=== PATIENT | female | born 1975 | race Caucasian/White ===

== ENCOUNTER 2025-07-29 08:01 | Outpatient (AMB) | payer OTHER, SELFPAY ==
--- OUTSIDE RECORDS SUMMARY | 2025-07-29 08:03 | XMS_ITS | Encounter Summary ---
Author Organization [facility] [address] [place] [address] Care Team Providers Care Pediatric Orthodontist Name Role Phone Unavailable Primary Care Provider Unavailabl e Encounter Details Date Type Department Care Team (Late st Contact Info) Description 10/28/2024 Scanned Document [facility] Bariatric Surgery [address] [place] [address] Bariatrics, Scan Social History Tobacco Use Types Packs/Day Years Used Date Smoking Tobacco: Never Assessed Comments Unknown Sex and Gender Information Value Date Recorded Sex Assigned at Not on file Legal Sex Female 1:41 PM EST Gender Identity Not on file Sexual Orientation Not on file documented as of this encounter Plan of Treatment Not on file documented as of this encounter Visit Diagnoses Not on filedocumented in this encounter
--- OUTSIDE RECORDS SUMMARY | 2025-07-29 08:03 | XMS_ITS | Encounter Summary ---
Author Organization [facility] [address] [place] [address] Care Team Providers Care Deck Steward Name Role Phone Unavailable Primary Care Provider Unavailabl e Encounter Details Date Type Department Care Team (Late st Contact Info) Description 10/28/2024 Scanned Document [facility] Bariatric Surgery [address] [place] [address] Bariatrics, Scan Social History Tobacco Use Types [...]
--- OUTSIDE RECORDS SUMMARY | 2025-07-29 08:03 | XMS_ITS | Continuity of Care Document ---
Author Organization [place] - [facility], [facility] Address [address] [place] [address] Care Team Providers Care Criminal Justice Instructor Name Role Phone STEPHONGARETH WILSON Primary Care Provider Assessment Encounter Date Assessment Date Assessment LastModified by Organization Details LastModified Time 06/07/2025 06/07/2025 49-year-old female presenting with otalgia status post right tympanoplasty with OCR [place] [address] Varner. Ear exam today showed: Similar ear findings to last visit with Dr. Varner with significant retraction including the cartilaginous portion of the tympanoplasty surgery. I do think they would benefit with potential eustachian tube dilation which I discussed with them. They do want to talk with Dr. Varner about this in the near future. From an ear perspective there is no evidence of infection I do think the urgent care was noticing the cartilage tympanoplasty thinking with some kind of infection. I do think the patient's significant otalgia is due to her TMJ crepitus which is notable on exam today. The patient's periauricular pressure sensation is most likely consistent with intermittent inflammation of the jaw joint or spasm of the surrounding musculature. I recommended the patient use light massage, warm compresses and anti-inflammator ies for symptomatic management. Stressed avoidance of chewy foods and gum/hard sweets. Use soft food diet as needed. [facility] Program information sheet was shared. If this treatment plan is ineffective, recommend follow up with their dentist.Referral to physical therapist who specializes in TMJ disorders could also be considered. [email or web address] Not available 06/07/2025 14:09:28 Plan of Treatment Reminders Order Date Submit Date Provider Last Modified By Organization Details Last Modified Time Details Appointments Test Results 15 2024 08:45A M JANEE VARNER MD Not available Not available Not available Lab None recorded . Referral None recorded . Procedures None recorded . Surgeries None recorded . Imaging None recorded . Medication Orders None recorded . Patient TargetsNo targets recorded. Patient InstructionsNo instructions recorded. Reason for Referral None Reported. Problems Name Problem SNOMED Code Status Onset Date Resolution Date Notes Provider Name and Address Organization Details Recorded Time Acute serous otitis media of right ear 45080602773 15490 Completed 202104/09/2024 Acute serous otitis media, right ear; Note: Date Diagnose d: 2 4:39 PM (H65.01) Not Available [facility] 4 02:55:29 Disorder of right Eustachi an tube 28851388377 98360 Active 2021 Other specifie d disorder s of Eustachi an tube, right ear; Note: Date Diagnose d: 2 4:35 PM (H69.81) Not Available [facility] 4 02:55:30 Diffuse otitis externa 89840978 Completed 202104/09/2024 Diffuse otitis externa, right ear; Note: Date Diagnose d: 09/05/20 22 5:11 PM (H60.311 ) Not Available [facility] 4 02:55:27 Conducti ve hearing loss 83942273 Active 2021 Conducti ve hearing loss, unilater al, right ear, with unrestri cted hearing on the contrala teral side; Note: Date Diagnose d: 09/05/20 22 5:12 PM (H90.11) Not Available [facility] 4 02:55:26 Impacted cerumen in right ear 94525678208 Active 2021 Impacted cerumen, right ear; Note: Date Diagnose d: 09/05/20 22 5:11 PM (H61.21) Not Available [facility] 4 02:55:30 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 , right ear; Note: Date Diagnose d: 3 12:38 PM (H73.811 ) Not Available [facility] 4 02:55:29 Marginal perforat ion of tympanic membrane 35188840 Completed 202204/09/2024 Other marginal perforat ions of tympanic membrane , right ear; Note: Date Diagnose d: 3 12:38 PM (H72.2X1 ) Not Available [facility] 4 02:55:28 Sensorin eural hearing loss 81375349 Active 2022 Sensorin eural hearing loss, unilater al, right ear, with unrestri cted hearing on the contrala teral side; Note: Date Diagnose d: 04/10/2023 5:05 PM (H90.41) Not Available [facility] 4 02:55:26 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 Medical Equipment None Reported. Allergies Allergen ID Allergen Name Allergen Category Reaction Reaction Severity Criticality Documentation Date Start Date Code Code System Note Provider Name and Address Organization Details Recorded Time 22678 Substance with sulfonami de structure and antibacte rial mechanism of action (substanc e) medicatio n other Not available Not available 01/20/2024 45662 8003 SNOMED React ion: Unkno wn; Not Available [facility] 4 01:05:58 49544 erythromy joselyn medicatio n other Not available Not available 01/20/2024 4053 RxNorm React ion: Unkno wn; Not Available [facility] 4 01:05:59 56600 Product containin g penicilli n (product) medicatio n anaphylax is Not available Not available 01/20/2024 46469 8001 SNOMED React ion: shock ;; Not Available [facility] 01:05:59 Medications Name Sig Start Date Stop Date Status Note LastModified by Organization Details LastModified Time Prescript ion - New active Rx^Rx_20 579254 Not Available Not Available Not Available cefpodoxi me 200 mg tablet TAKE 1 TABLET (ORAL) 2 TIMES PER DAY FOR 7 DAYS MUST ADMINIST ER WITH A MEAL/SANTI D 06/07 completed Not Available Not Available Not Available amlodipin e 2.5 mg tablet 06/07 completed Medicati on ID: [id number] B rand Name: amlodipi ne Send Method: E-Prescr ibed Sub s Allowed: subs OK Medic ationGen ericName : amlodipi ne Not Available Not Available Not Available sulfameth oxazole 800 mg-trimet hoprim 160 mg tablet TAKE 1 TABLET BY MOUTH EVERY 12 HOURS FOR 5 DAYS 06/07 completed Not Available Not Available Not Available levothyro xine 100 mcg tablet TAKE 1 TABLET BY MOUTH EVERY DAY active Not Available Not Available No t Available lorazepam 0.5 mg tablet active Medicati on ID: [id number] B rand Name: lorazepa m Send Method: E-Prescr ibed Sub s Allowed: subs OK Medic ationGen ericName : lorazepa m Not Available Not Available Not Available ciproflox acin 0.3 % eye drops 06/07 completed Medicati on ID: [id number] D uration Value: 14 Prescri bed By Name: Phillip Spears nd Name: ciproflo xacin HCl Send Method: E-Prescr ibed Sub s Allowed: subs OK Speci al Instruct ion: Instill 4 drops twice a day into affected ear for 14 days Med icationG enericNa me: ciproflo xacin HCl Not Available Not Available Not Available baclofen 10 mg tablet TAKE 1 TABLET BY MOUTH TWICE A DAY active Not Available Not Available No t Available buspirone 30 mg tablet TAKE 1 TABLET BY MOUTH TWICE A DAY active Not Available Not Available No t Available buspirone 10 mg tablet TAKE 1 TABLET BY MOUTH TWICE A DAY active Not Available Not Available No t Available metronida zole 0.75 % topical cream APPLY TO ENTIRE FACE IN THE MORNING AND IN THE EVENING active Not Available Not Available No t Available lorazepam 1 mg tablet TAKE 1 TABLET BY MOUTH EVERY DAY NEEDED FOR ANXIETY active Not Available Not Available No t Available ondansetr on 4 mg disintegr ating tablet DISSOLVE 1 TABLET ON THE TONGUE EVERY 8 HOURS NEEDED FOR NAUSEA OR VOMITING active Not Available Not Available No t Available cefdinir 300 mg capsule TAKE 1 CAPSULE BY MOUTH EVERY 12 HOURS FOR 10 DAYS 06/07 completed Not Available Not Available Not Available buspirone 15 mg tablet TAKE 1 TABLET BY MOUTH TWICE A DAY active Not Available Not Available No t Available TobraDex 0.3 %-0.1 % eye drops,[facility] 06/07 completed Medicati on ID: [id number] D uration Value: 14 Prescri bed By Name: JESSICA Spear nd Name: TobraDex Send Method: E-Prescr ibed Sub s Allowed: subs OK Speci al Instruct ion: Instill 4 drops in the right ear twice a day for 14 days [facility] TobraDex Not Available Not Available Not Available duloxetin e 60 mg capsule,d elayed release TAKE 1 CAPSULE BY MOUTH EVERY DAY active Not Available Not Available No t Available Cymbalta 30 mg capsule,d elayed release active Medicati on ID: [id number] Kassie simms Name: Cymbalta Send Method: E-Prescr ibed Sub s Allowed: subs OK Medic ationGen ericName : Cymbalta Not Available Not Available Not Available Tirosint 100 mcg capsule TAKE ONE Capsule BY MOUTH EVERY DAY active Not Available Not Available No t Available Vitals Date Recorded Body height Body mass index (BMI) Body weight Provider Name and Address Organization Details Last Updated DateTime 06/07/2025 157.48 cm 40.2 kg/m2 52216.32 g NAJMA AVELAR [facility] 06/07/2025 13:46:47 Social History None recorded. Functional Status None recorded. Mental Status None recorded. Family History Nothing Reported. Medical History No medical history recorded. Gynecological HistoryNo gynecological history recorded. Obstetrics History GPAL:G 0 P 0 0 0 0 Past Encounters Encounter ID Performer Location Encounter Start Date Encounter Closed Date Diagnosis/Indication Diagnosis SNOMED-CT Code Diagnosis ICD10 Code Diagnosis IMO Codes Diagnosis Note [id number] Jason Petty DO [facility] [address] [place] [address] 06/07/2025 13:27:52 06/07/2025 14:09:16 Dysfunction of bilateral eustachian tubes [id number] 591109 H69.93 18597920 History of surgery 52199 5003 Z98.890 11738115 Right Health Concerns Section Related Observation LastModified by Organization Detai ls LastModified Time None Recorded Concern Status LastModified by Organization Details LastModified Time None Recorded Payers Encounter Date Sequence Insurance Name Policy Number Policy Singh Covered Member ID Singh Member ID Guarantor Name 06/07/[address] [place] [address] [id number] Heather Alonso [id number] Heather Alonso Notes Date Note Type Note Provider Name and Address Organization Details Recorded Time 06/07/2025 text/html ROS as noted in the HPI Interval history: Patient notes over the last few months she has had some increasing ear pain and some fullness in the ear. She notes that her hearing has not changed much otherwise. She previously discussed potential eustachian tube balloon dilation with Dr. Varner but was holding off at this time. History of right tympanoplasty with ossicular reconstruction in 01/21/2023. Does have a history of pressure and blockage sensation last seen by Dr. Varner in October 2023. On his last evaluation there was some progression of the drum retraction even after tympanoplasty. There was some discussion of potential eustachian tube balloon dilation Jason Petty DO [address] [place] [address],[place] [address], [place], [address], [facility] - [facility] 06/07/2025 14:09:41 OBGyn Episode No OBEpisode recorded.
--- OUTSIDE RECORDS SUMMARY | 2025-07-29 08:04 | XMS_ITS | Clinical Summary ---
Author Organization [facility] Address [address] [place] [address] Care Team Providers Care Egg Processing Supervisor Name Role Phone Unavailable Primary Care Provider Unavailabl e Social History Tobacco Use Types Packs/Day Years Used Date Smoking Tobacco: Never Assessed Comments Unknown Sex and Gender Information Value Date Recorded Sex Assigned at Not on file Legal Sex Female 1:41 PM EST Gender Identity Not on file Sexual Orientation Not on file Plan of Treatment Health Maintenance Due Date Last Done Comments Hepatitis C Virus Screening 1973 HIV Screening 1986 DTaP/Tdap/Td Vaccines (1 - Tdap) 1992 Hepatitis B Vaccines (1 of 3 - 19+ 3-dose series) 12/07 Pneumococcal Vaccines 50+ (1 of 1 - PCV) 12/26/2023 Zoster (Shingles) Vaccine (1 of 2) 12/26/2023 COVID-19 Vaccine ( - 2023-25 season) 2025 RSV Vaccine 50 years and old er and Patients (1 - 1-dose 75+ series) 2048
--- OUTSIDE RECORDS SUMMARY | 2025-07-29 08:04 | XMS_ITS | Continuity of Care Document ---
Author Organization [facility] Address [address] [facility] [address] [place] [address] Insurance Providers Payer Plan Claims Address Claims Phone Policy Number Group Number Relation Employer Guarantor Name Guarantor Guarantor Address Guarantor Phone [facility] [employer] [place] [place] [address] [facility] [address] [address] tel: [phone] Problems Unknown Problems Results Test Result Date/Time Value / Unit Interp. Refere nce Range Comp. Metabolic Panel (14)[3 75068] Collected: 08/02/2024 07:01 PM Specimen Received: 08/02/2024 05:00 AM Source: [facility] Glucose [[id number]] 08/03/2024 07:54 AM 81 mg/dL 70-99 mg/dL BUN [085090] 08/03/2024 07:55 AM 13 mg/dL 6-2 4 mg/dL Creatinine [432974] 08/03/2024 08:03 AM 0.82 mg/dL 0.57-1.00 mg/dL eGFR [986996] 08/03/2024 08:03 AM 87 mL/min/1.73 >59 mL/min/1.73 BUN/Creatinine Ratio [041421] 08/03/2024 08:03 AM 16 9-23 Sodium [005183] 08/03/2024 08:01 AM 139 mmol/L 134-144 mmol/L Potassium [409181] 08/03/2024 08:04 AM 5.1 mmol/L 3.5-5.2 mmol/L Chloride [918418] 08/03/2024 08:01 AM 103 mmol/L 96-106 mmol/L Carbon Dioxide, Total [086777] 08/03/2024 07:59 AM 22 mmol/L 20-29 mmol/L Calcium [881910] 08/03/2024 07:54 AM 9.3 mg/dL 8.7-10.2 mg/dL Protein, Total [407582] 08/03/2024 08:02 AM 6.9 g/dL 6.0-8.5 g/dL Albumin [245603] 08/03/2024 07:59 AM 4.3 g/dL 3.9-4.9 g/dL Globulin, Total [992727] 08/03/2024 08:02 AM 2.6 g/dL 1.5-4.5 g/dL Bilirubin, Total [880532] 08/03/2024 07:59 AM 0.3 mg/dL 0.0-1.2 mg/dL Alkaline Phosphatase [412681] 08/03/2024 08:00 AM 70 IU/L 44-121 IU/L AST (SGOT) [550957] 08/03/2024 07:55 AM 19 IU/L 0-40 IU/L ALT (SGPT) [258170] 08/03/2024 08:02 AM 15 IU/L 0-32 IU/L Lipid Panel[075805] Collected: 08/02/2024 07:01 PM Specimen Received: 08/02/2024 05:00 AM Source: [facility] Cholesterol, Total [941154] 08/03/2024 08:11 AM 255 mg/dL H 100-199 mg/d L Triglycerides [020206] 08/03/2024 08:07 AM 118 mg/dL 0-149 mg/dL HDL Cholesterol [414589] 08/03/2024 08:09 AM 66 mg/dL >39 mg/dL VLDL Cholesterol [place] [541873] 08/03/2024 08:11 AM 21 mg/dL 5-40 mg/dL LDL Chol Calc ([facility]) [976622] 08/03/2024 08:11 AM 168 mg/dL H 0-99 mg/dL Hemoglobin A1c[963068] Collected: 08/02/2024 07:01 PM Specimen Received: 08/02/2024 05:00 AM Source: [facility] Hemoglobin A1c [681224] 08/03/2024 04:16 AM 5.3 % 4.8-5.6 % . Prediabetes: 5.7 - 6.4 Kika betes: >6.4 Glycemic control for adults with diabetes: 7.0 Allergies, adverse reactions, alerts No known allergies and adverse reactions Medications No administered medications reported Vital Signs No vital signs reported Social History No smoking Hx information available
--- OUTSIDE RECORDS SUMMARY | 2025-07-29 08:04 | XMS_ITS | Encounter Summary ---
Author Organization [facility] [address] [place] [address] Care Team Providers Care Stacker Straightener Name Role Phone Unavailable Primary Care Provider Unavailabl e Encounter Details Date Type Department Care Team (Late st Contact Info) Description 10/28/2024 Scanned Document [facility] Bariatric Surgery [address] [place] [address] Bariatrics, Scan Social History Tobacco Use Types [...]
--- OUTSIDE RECORDS SUMMARY | 2025-07-29 08:04 | XMS_ITS | Encounter Summary ---
Author Organization [facility] [address] [place] [address] Care Team Providers Care Folder Machine Adjuster Name Role Phone Unavailable Primary Care Provider Unavailabl e Encounter Details Date Type Department Care Team (Late st Contact Info) Description 10/28/2024 Scanned Document [facility] Bariatric Surgery [address] [place] [address] Bariatrics, Scan Social History Tobacco Use Types [...]
--- OUTSIDE RECORDS SUMMARY | 2025-07-29 08:04 | XMS_ITS | Data Portability ---
Author Organization [place] - [facility], Allergy Address [address] [address] Care Team Providers Care District Ranger Name Role Phone GARETH SZYMANSKI Primary Care Provider [phone] Assessment Encounter Date Assessment Date Assessment LastModified [...] Acute serous otitis media of right ear [id number] 94955 Completed 202104/09/2024 Acute serous otitis media, right ear; Note: Date Diagnose d: 2 4:39 PM (H65.01) Not Available [facility] 4 02:55:29 Disorder of right Eustachi an tube 15679432758 Active 2021 Other specifie d disorder s of Eustachi an tube, right ear; Note: Date Diagnose d: 2 4:35 PM (H69.81) Not Available [facility] 4 02:55:30 Diffuse otitis externa 55652311 Completed 202104/09/2024 Diffuse otitis externa, right ear; Note: Date Diagnose d: 09/05/20 22 5:11 PM (H60.311 ) Not Available [facility] 4 02:55:27 Conducti ve hearing loss 79641473 Active 2021 Conducti ve hearing loss, unilater al, right ear, with unrestri cted hearing on the contrala teral side; Note: Date Diagnose d: 09/05/20 22 5:12 PM (H90.11) Not Available [facility] 4 02:55:26 Impacted cerumen in right ear 90757125354 16919 Active 2021 Impacted cerumen, right ear; Note: Date Diagnose d: 09/05/20 22 5:11 PM (H61.21) Not Available [facility] 4 02:55:30 Atrophic flaccid right tympanic membrane 37205448467 32518 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 , right ear; Note: Date Diagnose d: 3 12:38 PM (H73.811 ) Not Available [facility] 4 02:55:29 Marginal perforat ion of tympanic membrane 27349887 Completed 202204/09/2024 Other marginal perforat ions of tympanic membrane , right ear; Note: Date Diagnose d: 3 12:38 PM (H72.2X1 ) Not Available [facility] 4 02:55:28 Sensorin eural hearing loss 40482504 Active 2022 Sensorin eural hearing loss, unilater al, right ear, with unrestri cted hearing on the contrala teral side; Note: Date Diagnose d: 04/10/2023 5:05 PM (H90.41) Not Available [facility] 4 02:55:26 Adhesive middle ear disease 4919791 Active 2023 Adhesive right middle ear disease; Note: Date Diagnose d: 4 9:45 AM (H74.11) Not Available [facility] 4 02:55:29 Dysfunct ion of bilatera l eustachi an tubes 45374016109 53188 Active 2024 Jason Petty, [place] [address], [facility] [place], [address] , [facility] - [facility] 5 12:27:59 Problem Notes None recorded. Medical Equipment None Reported. Allergies Allergen ID Allergen Name Allergen Category Reaction Reaction Severity Criticality Documentation Date Start Date Code Code System Note Provider Name and Address Organization Details Recorded Time 02305 Substance with sulfonami de structure and antibacte rial mechanism of action (substanc e) medicatio n other Not available Not available 01/20/2024 73428 8003 SNOMED React ion: Unkno wn; Not Available [facility] 4 01:05:58 56899 erythromy joselyn medicatio n other Not available Not available 01/20/2024 4053 RxNorm React ion: Unkno wn; Not Available [facility] 4 01:05:59 55206 Product containin g penicilli n (product) medicatio n anaphylax is Not available Not available 01/20/2024 73470 8001 SNOMED React ion: shock ;; Not Available [facility] 01:05:59 Medications Name Sig Start Date Stop Date Status Note LastModified by Organization Details LastModified Time Prescript ion - New active Rx^Rx_20 391817 Not Available Not Available Not Available cefpodoxi me 200 mg tablet TAKE 1 TABLET (ORAL) 2 TIMES PER DAY FOR 7 DAYS MUST ADMINIST ER WITH A MEAL/SANTI D 06/07 completed Not Available Not Available Not Available amlodipin e 2.5 mg tablet 06/07 completed Medicati on ID: [id number] B rand Name: amlodipi ne Send Method: [...] 0.5 mg tablet active Medicati on ID: [id number] B rand Name: lorazepa m Send Method: E-Prescr ibed Sub s Allowed: subs OK Medic ationGen ericName : lorazepa m Not Available Not Available Not Available ciproflox acin 0.3 % eye drops 06/07 completed Medicati on ID: [id number] D uration Value: 14 Prescri bed By [...] t Available TobraDex 0.3 %-0.1 % eye drops,[facility] 06/07 completed Medicati on ID: [id number] D uration Value: 14 Prescri bed By Name: JESSICA Spear nd Name: TobraDex Send Method: E-Prescr ibed Sub s Allowed: subs OK Speci al Instruct ion: Instill 4 drops in the right ear twice a day for 14 days Med icationG enericNa me: TobraDex Not Available Not Available Not Available duloxetin e 60 mg capsule,d elayed release TAKE 1 CAPSULE BY MOUTH EVERY DAY active Not Available Not Available No t Available Cymbalta 30 mg capsule,d elayed release active Medicati on ID: [id number] Kassie simms Name: Cymbalta Send Method: E-Prescr [...] Updated DateTime 06/07/2025 157.48 cm 40.2 kg/m2 37788.32 g NAJMA AVELAR [facility] 06/07/2025 13:46:47 Social History None recorded. Functional Status None recorded. Mental Status None recorded. Family History Nothing Reported. Medical History No medical history recorded. Gynecological HistoryNo gynecological history recorded. Obstetrics History GPAL:G 0 P 0 0 0 0 Past Encounters Encounter ID Performer Location Encounter Start Date Encounter Closed Date Diagnosis/Indication Diagnosis SNOMED-CT Code Diagnosis ICD10 Code Diagnosis IMO Codes Diagnosis Note [id number] Jason Petty DO [facility] [address] [place] [address] 06/07/2025 13:27:52 06/07/2025 14:09:16 Dysfunction of bilateral eustachian tubes 1160303138 524871 H69.93 87304557 History of surgery 83168 5003 Z98.890 68174150 Right Health Concerns Section Related Observation LastModified by Organization Detai ls LastModified Time None Recorded Concern Status LastModified by Organization Details LastModified Time None Recorded Advance Directives Directive None Recorded Payers Insurance Date Sequence Insurance Name Policy Number Policy Singh Covered Member ID Singh Member ID Guarantor Name 06/07/[address] [place] [address] [id number] Heather Alonso [id number] Heather Alonso Notes Date Note Type Note [...] eustachian tube balloon dilation Jason Petty DO [address] [place] [address],[facility] [address], [place], [address], [facility] - [facility] 06/07/2025 14:09:41 OBGyn Episode No OBEpisode recorded.
[2025-07-29 08:06] VITALS: BP 122/90; PULSE 76; RESP 16; O2SAT 99; BMI 40.2
--- NOTE | 2025-07-29 08:06 | A.OFFVIS_ITS ---
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 According to the patient today, about 8 or 10 years ago she had a severe headache with left sided facial weakness and numbness with some confusion. Prior to this she never had significant headaches. A few years later and about 5 years ago from today she had an episode of expressive aphasia and diplopia. She did not develop a headache that she can recall. 2-3 years ago from now while driving she had a complete loss of vision on the left side that lasted a couple of minutes along with some mild confusion about her whereabouts. She did not develop a headache that she can recall. More recently she has had some episodes of staring and possible loss of awareness as noted by her . She does feel that she is often loosing gaps in time. Occurring weekly. She also has some word finding difficulties and general difficulty with short term memory. She will also have episodes where her whole body feels extremely tired and fatigued where she has difficulty even performing simple ADLs when this happens. She experiences some mild headaches a couple times per month relieved by tylenol and rest within a couple of hours. Pain is to the right parietal area accompanied by light and sound sensitivity and nausea. Other related background information: Sleep:Reports that her sleep is horrible and sporadic where she has poor sleep and other times where she can sleep for days. She does not snore or have gasping arousals. There has been question of narcolepsy in the past. Stressors: Reports that she is a baseline tense person Hydration: Reports good hydration Caffeine intake: 1-2 cups of coffee daily Alcohol intake:2 drinks per month Substance use:None Tobacco use:None Last eye exam:Within the last 2 years- No significant abnormalities Last dental visit: 2-3 weeks ago. Does clench at night but does not use a mouthguard History of head injury:No but has had several right ear surgeries Family history: Aunt with a stroke history. No known seizure history. Aunt with early onset dementia (in 50s), mother with dementia. Past medication trials: N/A Prior workup: MRI brain with and without contrast 03/08/2023: No evidence for multiple sclerosis. No significant white matter disease. Unremarkable study MRI cervical spine with and without contrast 03/08/2023: No abnormal signal within the cervical cord. No abnormal enhancement. No MR evidence of demyelinating disease. Mild degenerative changes. [facility] Medical History (Updated 07/29/25 @ 08:52 by Tomeka Rocha CNP) Forgetfulness Tension headache Severe obesity Raynaud phenomenon Hypothyroidism Fibromyalgia Depression with anxiety Rosacea Surgical History (Updated 07/27/25 @ 08:45 by Jamarcus Thurman [facility]) S/P laparoscopic sleeve gastrectomy Hx of appendectomy Review of Systems Const All systems reviewed & are unremarkable except as noted in HPI and below Physical Exam Vital Signs: Last Vital Signs Pulse 76 07/29/25 08:06 Resp 16 07/29/25 08:06 BP 122/90 H 07/29/25 08:06 Pulse Ox 99 07/29/25 08:06 Oxygen Delivery Method Room Air 07/29/25 08:06 BMI result Body Mass Index 40.2 Const General: cooperative, healthy appearing, comfortable and no acute distress Nutritional Appearance: well nourished Orientation/consciousness: patient oriented x3 Limitations: no limitations HEENT Head: Yes normal to inspection and Yes normocephalic Eyes General: appearance normal, both eyes and all related structures Visual [place]: normal visual [place] by confrontation Alignment and Position: alignment normal Periorbital: periorbital findings normal Eyelids: Yes eyelids normal Conjunctivae: conjunctivae normal Sclerae: sclerae normal Direct Ophthalmoscopy: normal light reflex, no papilledema and fundi normal bilaterally Neck Neck: Yes normal visual inspection and Yes full ROM General: Yes no CVA tenderness Back/Spine/Pelvis Back: no CVA tenderness Cervical Spine: normal cervical lordosis Thoracic/Lumbar Spine: thoracic and lumbar spine normal to inspection Neuro General: patient oriented x3 and tone normal Cranial nerves: Yes CN's II-XII intact bilaterally and Yes Facial sensation intact/muscles of mastication intact Cognition (Neuro): normal cognition Gait exam (Neuro): Normal gait present Motor exam (neuro): 5/5 motor strength present throughout and no tremor noted Sensory Exam: double simultaneous stimulation for sensation normal Deep tendon reflexes (DTR's): Right triceps reflex intensity grade: 3+, Left triceps reflex intensity grade: 3+, Rt Biceps (C5, C6): 3+, Left biceps reflex intensity grade: 3+, Right brachioradialis reflex intensity grade: 3+, Left brachioradialis reflex intensity grade: 3+, Right patellar reflex intensity grade: 3+, Left patellar reflex intensity grade: 3+, Right ankle reflex intensity grade: 3+ and Left ankle reflex intensity grade: 3+ Romberg Test: Negative Pupils: Normal pupillary reactivity/response: bilateral Psych Appearance: grossly normal Mental Status: mental status grossly normal Speech and movement: Normal speech and movement present and Clear speech present Affect: normal affect Attitude: cooperative Thought process: Normal thought process present Thought content: Normal thought content present Insight: Good insight present (Psych) Judgement: Good judgement present (Psych) Assessment & Plan Assessment & Plan (1) Amnesia: Code(s): R41.3 - Other amnesia Category: Medical (2) Encephalopathy: Code(s): G93.40 - Encephalopathy, unspecified Category: Medical (3) Amaurosis fugax: Code(s): G45.3 - Amaurosis fugax Category: Medical (4) Diplopia: Code(s): H53.2 - Diplopia Category: Medical (5) Migraine with aura and without status migrainosus, not intractable: Code(s): G43.109 - Migraine with aura, not intractable, without status migrainosus Category: Medical Plan Heather is a 49-year-old female patient with a past medical history of anxiety, depression, fibromyalgia, hypothyroidism, Raynaud's phenomena who is here today for an evaluation of headaches and forgetfulness. Her described neurological events and headache description raises concern for migraine with some complex features. Her brain imaging in 2022 was reassuring. She has however not had any vascular imaging and because she has had an episode of amaurosis fugax, I think it would be prudent to ensure we rule out vascular etiology. She also describes some episodes of staring and gaps in time that are lost concerning for seizure activity. She does not have any family history of sites and she has no other symptoms of seizure activity notable. Sleep and some ongoing fatigue has been a concern with extremely variable sleep patterns going from very poor sleep quality and insomnia to periods of time where she can sleep for 2-3 days in a row. She did have a sleep study in the past as there was some concern for narcolepsy however she has not had any formal [place] a studies or formal visit with a sleep specialist. Sleep abnormalities may be playing a role in her day-to-day memory and cognition. -CTA head and neck -EEG -Mag ox 400 mg nightly-for sleep and possible migraine prevention -Consider sleep med referral for narcolepsy workup Orders: Orders CT angio head neck Today G45.3 - Amaurosis fugax, H53.2 - Diplopia EEG Routine Today G93.40 - Encephalopathy, unspecified, R41.3 - Other amnesia Medications: New magnesium oxide 400 mg PO DAILY 90 tabs 3RF 90 days Coding Level of Care Code New Pt Level 5 (60411) Diagnoses Amnesia R41.3 Encephalopathy G93.40 Amaurosis fugax G45.3 Diplopia H53.2 Migraine with aura and without status migrainosus, not intractable G43.109
== END 2025-07-29 08:53 | disposition home or self-care (01) ==
LOC: HO.HSM 08:01
PROVIDERS: PCP Internal Medicine Nephrology; Visit Provider Nurse Practitioner
DX: R41.3 Other amnesia (principal); G93.40 Encephalopathy, unspecified; G45.3 Amaurosis fugax; H53.2 Diplopia; G43.109 Migraine with aura, not intractable, without status migrainosus
CPT/HCPCS: 99204